=== PATIENT | female | born 1990 | race Caucasian/White ===

== ENCOUNTER 2016-07-10 19:37 | Emergency (ER) | payer OTHER ==
[2016-07-10 19:46] VITALS: BP 111/64; PULSE 96; TEMP 99; BMI 22.8
--- NOTE | 2016-07-10 20:34 | PDOC ---
History of Present Illness - General Chief Complaint: Pain, Acute Stated Complaint: DIZZINESS Time Seen by Provider: 07/10/16 19:48 History Source: Patient Exam Limitations: No Limitations - History of Present Illness Timing/Duration: other (3d) Associated Symptoms: denies: chest pain, malaise, nausea/vomiting Past History - Past Medical History Allergies/Adverse Reactions: Allergies Allergy/AdvReac Type Severity Reaction Status Date / Time No Known Drug Allergies Allergy Verified 07/10/16 19:43 Home Medications: Ambulatory Orders Nitrofurantoin Monohyd/M-Cryst [Macrobid -] 100 mg PO BID #14 capsule 07/10/16 Asthma: No Cancer: No Cardiac Disorders: No Diabetes: No HTN: No Suicide Attempt (Hx): No Seizures: No Thyroid Disease: No - Reproductive History (#): 2 Para: 1 - Psycho/Social/Smoking Cessation Hx Anxiety: No Suicidal Ideation: No Smoking History: Never smoked Hx Alcohol Use: No Drug/Substance Use Hx: No Substance Use Type: None Hx Substance Use Treatment: No *Physical Exam - Vital Signs Last Vital Signs Temp Pulse Resp BP Pulse Ox 99 F 96 H 18 111/64 100 07/10/16 19:45 07/10/16 19:45 07/10/16 19:45 07/10/16 19:45 07/10/16 19:45 *DC/Admit/Observation/Transfer Diagnosis at time of Disposition: Qualifiers: Weeks of gestation: less than 8 weeks Qualified Code(s): Z3A.01 - Less than 8 weeks gestation of Urinary tract infection Qualifiers: Urinary tract infection type: acute cystitis Hematuria presence: without hematuria Qualified Code(s): N30.00 - Acute cystitis without hematuria - Discharge Dispostion Disposition: HOME Condition at time of disposition: Improved - Prescriptions Prescriptions: Nitrofurantoin Monohyd/M-Cryst [Macrobid -] 100 mg PO BID #14 capsule - Referrals Referrals: Jose Pedraza MD [Staff Physician] - - Patient Instructions Printed Discharge Instructions: Urinary Tract Infection Additional Instructions: Macrobid 100mg take 1 tablet twice a dayf or 5 days Increase fluids Rest Follow up with your [facility] physician or the one listed on your discharge
[2016-07-10 20:56] LABS: URINE APPEARANCE SLCLOUDY; URINE BILIRUBIN NEGATIVE (NEGATIVE); URINE COLOR YELLOW; URINE GLUCOSE (UA) NEGATIVE (NEGATIVE); URINE KETONE NEGATIVE (NEGATIVE); URINE NITRITE NEGATIVE (NEGATIVE); URINE PROTEIN NEGATIVE (NEGATIVE); URINE UROBILINOGEN NEGATIVE E.U./dl (0.2-1.0)
[2016-07-10 21:00] LABS: URINE BLOOD 1+ (NEGATIVE); URINE LEUK ESTERASE 2+ (NEGATIVE)
[2016-07-10 21:01] LABS: URINE BACTERIA FEW /hpf (NONE SEEN); URINE HYALINE CAST 1 /lpf; URINE MUCUS RARE; URINE RBC 4 /hpf (0-3); URINE WBC 4 /hpf (3-5)
[2016-07-10] MEDS ORDERED: NITROFURANTOIN MACROCRYSTAL 50 MG CAPSULE (FP) PO SCH (21:30)
== END 2016-07-10 21:41 | disposition home or self-care (01) ==
LOC: JER 19:37
DX: O23.11 Infections of bladder in pregnancy, first trimester (principal); N30.90 Cystitis, unspecified without hematuria; Z3A.01 Less than 8 weeks gestation of pregnancy
CPT/HCPCS: 81003; 81015; 84703; 87086; 99283-25

== ENCOUNTER 2017-03-03 18:40 | Inpatient (IN) | payer OTHER ==
[2017-03-03] MEDS ORDERED: PROMETHAZINE HCL 25 MG/1 ML VIAL IVPUSH ONE (20:47)
[2017-03-03] MEDS ORDERED: BUTORPHANOL TARTRATE 1 MG/ML VIAL IVPUSH PRN (20:47)
[2017-03-03] MEDS ORDERED: DEXTROSE 5%-LACTATED RINGERS 1,000 ML IV SCH (21:00)
[2017-03-03 21:04] LABS: BASOPHIL 0.3 % (0-2.0); MCH 30.7 pg (25.7-33.7); MCHC 34.6 g/dl (32.0-36.0); MEAN CELL VOLUME 88.5 fl (80-96); NEUTROPHILS 80.9 % (42.8-82.8); PLATELET COUNT 124 K/MM3 (134-434); RDW 13.8 % (11.6-15.6); WHITE BLOOD COUNT 10.9 K/mm3 (4.0-10.0)
[2017-03-03 21:18] LABS: INR 0.97 (0.82-1.09); PROTHROMBIN TIME (PATIENT) 10.7 SEC (9.98-11.88)
--- NOTE | 2017-03-03 21:36 | PN ---
Progress Note (short form) - Note Progress Note: cx 9 cm 100 vx 0 fhr cat 1 arom, mec stain amniotic fluid
[2017-03-03 21:40] LABS: ANION GAP 14 (8-16); CALCIUM 8.8 mg/dL (8.5-10.1); CO2 22 mmol/L (21-32); CREATININE 0.6 mg/dL (0.55-1.02); GLUCOSE,RANDOM 79 mg/dL (74-106)
--- NOTE | 2017-03-03 21:41 | HP ---
Past Medical History - Primary Care Physician PCP:: Richard Reynolds - Admission Chief Complaint: 39,6 weeks, labor History of Present Illness: 26 yo f edc by sono 03/04/17 in labor cx 5 cm 100 vx 0 mi fhr cat 1, contraction regular strong History Source: Patient Limitations to Obtaining History: Language Barrier - Past Medical History ...: 3 ...Para: 1 ...Term: 1 ...Spon : 1 ...LMP: 06/03/16 ... Weeks Gestation by Dates: 39.1 ...EDC by Dates: 03/09/17 ...EDC by Sono: 03/04/17 - Past Surgical History Past Surgical History: Yes: Cystectomy Hx Myomectomy: No Hx Transabdominal Cerclage: No Additional Surgical History: ovarian cystectomy twice - Smoking History Smoking history: Never smoked Have you smoked in the past 12 months: No - Alcohol/Substance Use Hx Alcohol Use: No - Social History Usual Living Arrangement: Yes: With Spouse History of Recent Travel: No Home Medications - Allergies Allergies/Adverse Reactions: Allergies Allergy/AdvReac Type Severity Reaction Status Date / Time No Known Drug Allergies Allergy Verified 07/10/16 19:43 - Home Medications Home Medications: Ambulatory Orders Nitrofurantoin Monohyd/M-Cryst [Macrobid -] 100 mg PO BID #14 capsule 07/10/16 Review of Systems - Review of Systems Constitutional: reports: No Symptoms Eyes: reports: No Symptoms HENT: reports: No Symptoms Neck: reports: No Symptoms Cardiovascular: reports: No Symptoms Respiratory: reports: No Symptoms Gastrointestinal: reports: No Symptoms Genitourinary: reports: No Symptoms Breasts: reports: No Symptoms Reported Musculoskeletal: reports: No Symptoms Integumentary: reports: No Symptoms Neurological: reports: No Symptoms Endocrine: reports: No Symptoms Hematology/Lymphatic: reports: No Symptoms Psychiatric: reports: No Symptoms Physical Exam - Maternity Vital Signs: Vital Signs Temperature 98.0 F 03/03/17 19:00 Pulse Rate 80 03/03/17 19:00 Respiratory Rate 20 03/03/17 19:00 Blood Pressure 102/59 03/03/17 19:00 O2 Sat by Pulse Oximetry (%) Constitutional: Yes: Well Nourished, No Distress, Calm Eyes: Yes: WNL, Conjunctiva Clear, EOM Intact HENT: Yes: WNL, Atraumatic, Normocephalic Neck: Yes: WNL, Supple, Trachea Midline Cardiovascular: Yes: WNL, Regular Rate and Rhythm Breast(s): Yes: WNL - Abdominal Exam/OB Fundal Height: 40 Number of Fetuses: Single Presentation: Vertex Contractions: Yes Regularity: Regular Intensity: Mod/Strong Monitor Mode: External Heart Rate Location: [facility] Category: I Accelerations: Uniform Decelerations: None - Vaginal Exam/OB Vaginal Bleediing: No Speculum Exam: No Dilatation (cm): 5 cm Effacement (%): 100 Amniotic Membrane Status: Bulging Station: -2 - Physical Exam Musculoskeletal: Yes: WNL Extremities: Yes: WNL Edema: Yes Edema: LLE: Trace, RLE: Trace Deep Tendon Reflex Grade: Normal +2 Psychiatric: Yes: Alert - Labs Lab Results: CBC, BMP 03/03/17 20:45 Hemorrhage Risk Assessment - Risk Factors Medium Risk Factors: Yes: None High Risk Factors: Yes: None Risk Score: 1 Risk Level: Medium Risk Problem List - Problems (1) with 39 completed weeks gestation Code(s): Z3A.39 - 39 WEEKS GESTATION OF (2) Labor established Code(s): PDX0465 - Assessment/Plan admit for vaginal delivery
[2017-03-03] MEDS ORDERED: WITCH HAZEL 50% (TUCKS) 40 PAD/JAR PAD TP PRN (22:18)
[2017-03-03] MEDS ORDERED: BENZOCAINE 28 GM HEMORRHOIDAL OINTMENT TP PRN (22:18)
[2017-03-03] MEDS ORDERED: METHYLERGONOVINE MALEATE 0.2 MG/1 ML AMP IM PRN (22:18)
[2017-03-03] MEDS ORDERED: oxyCODONE HCL 5 MG TABLET PO PRN (22:18)
[2017-03-03] MEDS ORDERED: BENZOCAINE 20% 57 GM BOTTLE TP PRN (22:18)
[2017-03-03] MEDS ORDERED: BISACODYL 10 MG SUPP.RECT RC PRN (22:18)
[2017-03-03] MEDS ORDERED: D5W-LR W/ 20 UNITS OXYTOCIN 1,000 ML IV SCH (22:30)
[2017-03-03 22:42] LABS: VENOUS BLOOD GAS HCO3 18.9 meq/L (19-25)
[2017-03-03 22:43] LABS: VENOUS PH 7.44 (7.32-7.42)
[2017-03-03 22:45] LABS: ARTERIAL BLOOD GAS BASE EXCESS -3.8 meq/l (-2-2); ARTERIAL BLOOD GAS HCO3 18.7 meq/L (22-26); ARTERIAL BLOOD GAS PO2 39.6 mmHg (80-100)
[2017-03-03 22:46] LABS: ARTERIAL BLOOD GAS pH 7.43 (7.35-7.45); PT. ON O2? NO
[2017-03-03 23:20] VITALS: BMI 27.9
[2017-03-04] MEDS: IBUPROFEN 600 MG TABLET (FP) PO PRN ×3 (00:36→21:06)
[2017-03-04] MEDS: ACETAMINOPHEN 325 MG TABLET (FP) PO PRN ×3 (00:36→21:06)
[2017-03-04 07:24] LABS: BASOPHIL 0.1 % (0-2.0); MCH 30.2 pg (25.7-33.7); MCHC 33.8 g/dl (32.0-36.0); MEAN CELL VOLUME 89.2 fl (80-96); MEAN PLT VOLUME 10.3 fl (7.5-11.1); NEUTROPHILS 81.4 % (42.8-82.8); PLATELET COUNT 118 K/MM3 (134-434); RDW 13.8 % (11.6-15.6); WHITE BLOOD COUNT 13.7 K/mm3 (4.0-10.0)
--- NOTE | 2017-03-04 07:36 | PN ---
Progress Note (short form) - Note Progress Note: ppd 1 doing well, no c/o ,voids ok CBC, BMP 03/03/17 20:45 Last Vital Signs Temp Pulse Resp BP Pulse Ox 99.4 F 66 18 109/64 03/04/17 06:00 03/04/17 06:00 03/04/17 06:00 03/04/17 06:00 uterus firm, non tender ,no cva lochia mild ,no calf tenderness plan ambulate observe cbc , plan for d/c home in am Problem List - Problems (1) with 39 completed weeks gestation Code(s): Z3A.39 - 39 WEEKS GESTATION OF (2) Labor established Code(s): [id number] -
[2017-03-04] MEDS: PRENATAL VITAMINS W/ FOLIC ACID TABLET (FP) PO SCH (09:23)
[2017-03-04] MEDS: FERROUS SO4 325 MG TABLET (FP) PO SCH ×2 (09:23→21:05)
[2017-03-04] MEDS ORDERED: SENNOSIDES/DOCUSATE COMBO (SENNA PLUS) TABLET (UD) PO PRN (22:00)
--- NOTE | 2017-03-05 08:48 | DS ---
Physical Exam-TURBINATED [employer] GR[employer]ER Vital Signs: Vital Signs Temperature 98.3 F 03/04/17 21:14 Pulse Rate 77 03/04/17 21:14 Respiratory Rate 18 03/04/17 21:14 Blood Pressure 115/63 03/04/17 21:14 O2 Sat by Pulse Oximetry (%) Constitutional: Yes: Well Nourished Eyes: Yes: Conjunctiva Clear HENT: Yes: Atraumatic Neck: Yes: Supple, Trachea Midline Cardiovascular: Yes: Regular Rate and Rhythm Respiratory: Yes: Regular Gastrointestinal: Yes: Normal Bowel Sounds External Genitalia: Yes: Normal Vaginal Exam: Yes: Normal Cervix: Yes: Normal Uterus: Yes: Normal ....Post : Yes: Uterus firm, Moderate lochia serosa Breast(s): Yes: WNL Musculoskeletal: Yes: WNL Neurological: Yes: Alert, Oriented ...Motor Strength: WNL Psychiatric: Yes: Alert, Oriented Labs: CBC, BMP 03/04/17 06:00 03/03/17 20:45 Delivery - Delivery Type of Anesthesia: Local Episiotomy/Laceration: None EBL (cc): 300 Delivery, Single - Stages of Labor Date 1st Stage Initiatied: 03/03/17 Time 1st Stage Initiated: 18:00 Date 2nd Stage Initiated: 03/03/17 Time 2nd Stage Initiated: 21:50 Date of Delivery: 03/03/17 Time of Delivery: 21:56 Time Placenta Delivered: 21:58 - Condition of Infant Academic Director/Harp Action Assembler Present: No Gender: Male Weight: 8 lb 7 oz Position: Left, OA Total Hours ROM (Hrs/Mins): 0Hr 28min - 1 Minute Total Score: 8 5 Minutes Total Score: 9 - Feeding Plan Initial Plan: Elected not to breastfeed exclusively throughout hospitalization Discharge Summary Reason For Visit: LABOR ADMIT Current Active Problems Labor established (Acute) with 39 completed weeks gestation (Acute) Status post normal vaginal delivery (Acute) Procedures: Principal: Normal vaginal delivery Hospital Course: Routine care Condition: Good - Instructions Diet, Activity, Other Instructions: Regular diet No douching, no sexual intercourse x 6 weeks. F/U with MD in 6 weeks Referrals: Richard Reynolds MD [Staff Physician] - Disposition: HOME - Home Medications Comprehensive Discharge Medication List: Ambulatory Orders Vit Calc,Iron,Folic [ Vitamins] 1 each PO DAILY 03/03/17
[2017-03-05] MEDS: FERROUS SO4 325 MG TABLET (FP) PO SCH (10:14)
[2017-03-05] MEDS: PRENATAL VITAMINS W/ FOLIC ACID TABLET (FP) PO SCH (10:15)
[2017-03-05] MEDS ORDERED: DIPHTH,PERTUSS(ACELL),TET 0.5 ML DISP.SYRIN IM ONE (11:00)
[2017-03-05 13:18] VITALS: BP 101/62; PULSE 74; TEMP 98.1
== END 2017-03-05 13:15 | disposition home or self-care (01) | DRG 560 ==
LOC: JDEL 18:40 → JLDR 19:45 → J3W 03-04 00:45
PROVIDERS: ADMIT Obstetrics & Gynecology; ATTEND Obstetrics & Gynecology
PROC: 10E0XZZ Delivery of Products of Conception, External Approach (ICD-10-PCS; principal; 2017-03-03)
DX: O80 Encounter for full-term uncomplicated delivery (principal); Z3A.39 39 weeks gestation of pregnancy; Z37.0 Single live birth
CPT/HCPCS: 36415; 36600; 59025; 59409; 80048; 82803; 85025; 85610; 85730; 86593; 86850; 86900; 86901; 90715